=== PATIENT | female | born 1960 | race Caucasian/White ===

== ENCOUNTER 2017-06-05 19:08 | Emergency (ER) | payer OTHER ==
[~2017-06-05] VITALS: Ht 163.8 cm; Wt 80.9 kg
[~2017-06-05 19:08] MED LIST: ASPI81TA11 PO; B-12500T3 PO; CARD120C4 PO; D31000CA PO; LEVO.025 PO
[2017-06-05 19:09] VITALS: BP 151/85; PULSE 138; RESP 20; TEMP 100; O2SAT 97
--- NOTE | 2017-06-05 20:08 | RADRPT ---
EXAM DATE/TIME: 06/05/2017 19:44 [place] COMPARISON: No previous studies available for comparison. INDICATIONS : Fever and low blood pressure. MEDICAL HISTORY : None. SURGICAL HISTORY : None. ENCOUNTER: Initial ACUITY: 2 days PAIN SCORE: 0/10 LOCATION: Bilateral chest FINDINGS: PA and lateral views of the chest demonstrate the lungs to be symmetrically aerated without evidence of mass, infiltrate or effusion. The cardiomediastinal contours are unremarkable. Osseous structure s are intact, except mild scoliosis. CONCLUSION: 1. No active disease. Mild scoliosis. Mario Pickard MD on June 05, 2017 at 20:04 Board Certified Radiologist. This report was verified electronically.
[2017-06-05] MEDS ORDERED: ACETAMINOPHEN 325 MG TAB PO ONE (20:45)
[2017-06-05] MEDS ORDERED: SODIUM CHLOR 0.9% 1000 ML INJ 1,000 ML IV ONE (20:45)
[2017-06-05] MEDS ORDERED: D-20TAB3 PO (20:58)
[2017-06-05] MEDS ORDERED: BACL10TA PO (20:58)
[2017-06-05] MEDS ORDERED: CARD120T4 PO (20:58)
[2017-06-05 21:47] LABS: AUTOMATED NEUTROPHIL # 6.4 TH/MM3 (1.8-7.7); BASOPHIL % 0.3 % (0.0-2.0); EOSINOPHIL % 0.4 % (0.0-4.0); HEMATOCRIT 42.1 % (35.0-46.0); HEMOGLOBIN 14.2 GM/DL (11.6-15.3); LYMPHOCYTE # 0.9 TH/MM3 (1.0-4.8); MEAN CELL VOLUME 85.2 FL (80.0-100.0); MEAN CORPUSCULAR HEMOGLOBIN 28.7 PG (27.0-34.0); MEAN CORPUSCULAR HGB CONC 33.7 % (32.0-36.0); MEAN PLATELET VOLUME 8.4 FL (7.0-11.0); MONO % 3.5 % (0.0-8.0); MONOCYTE # 0.3 TH/MM3 (0-0.9); NEUT % 83.8 % (16.0-70.0); PLATELET COUNT 250 TH/MM3 (150-450); RED BLOOD COUNT 4.94 MIL/MM3 (4.00-5.30); RED CELL DISTRIBUTION WIDTH 14.2 % (11.6-17.2); WHITE BLOOD COUNT 7.6 TH/MM3 (4.0-11.0)
[2017-06-05 21:49] LABS: AMORPHOUS SEDIMENT, URINE RARE; BILIRUBIN, URINE NEG (NEG); BLOOD, URINE SMALL (NEG); GLUCOSE,URINE NEG (NEG); KETONE, URINE NEG (NEG); MUCUS URINE FEW /lpf (OCC); NITRITE,URINE NEG (NEG); PH, URINE 5.5 (5.0-8.5); SQUAMOUS EPITHELIAL CELL URINE 7 /hpf (0-5); URINE COLOR YELLOW (YELLW/STRAW); URINE LEUKOCYTE ESTERASE LARGE (NEG)
--- NOTE | 2017-06-05 22:10 | EKG ---
Date Performed: 06/05/2017 Time Performed: 20:55:37 PTAGE: 57 years EKG: SINUS TACHYCARDIA POSSIBLE LEFT ATRIAL ENLARGEMENT POSSIBLE LEFT VENTRICULAR HYPERTROPHY ST DEVIATION AND MODERATE T-WAVE ABNORMALITY ABNORMAL ECG PREVIOUS TRACING : 04/14/2014 05.00 Since previous tracing, no significant change noted DOCTOR: Lorena Devine Interpretating Date/Time 06/05/2017 22:09:09
[2017-06-05 22:13] LABS: ALKALINE PHOSPHATASE 79 U/L (45-117); TOTAL BILIRUBIN ADULT 0.3 MG/DL (0.2-1.0); TOTAL PROTEIN 7.5 GM/DL (6.4-8.2); TROPONIN I LESS THAN 0.02 NG/ML (0.02-0.05)
[2017-06-05 22:20] LABS: ALBUMIN 3.5 GM/DL (3.4-5.0); ALT (GPT) 21 U/L (10-53); AST (GOT) 22 U/L (15-37); BICARBONATE 23.9 MEQ/L (21.0-32.0); BLOOD UREA NITROGEN 12 MG/DL (7-18); CALCIUM 8.2 MG/DL (8.5-10.1); CHLORIDE 105 MEQ/L (98-107); CREATININE 0.61 MG/DL (0.50-1.00); GLOMERULAR FILTRATION RATE 101 ML/MIN (>89); GLUCOSE,RANDOM 98 MG/DL (74-106); MAGNESIUM 2.1 MG/DL (1.5-2.5); SODIUM (NA) 136 MEQ/L (136-145)
[2017-06-05] MEDS ORDERED: NITROFURANTOIN MONOHYD MACROCR 100 MG CAP PO ONE (22:45)
[2017-06-05] MEDS ORDERED: MACR100C2 PO (22:46)
--- NOTE | 2017-06-05 22:46 | PD ---
HPI Chief Complaint: Cold / Flu Symptoms Time Seen by Provider: 20:24 Travel History International Travel<30 days: No Contact w/Intl Traveler<30days: No Traveled to known affect area: No History of Present Illness HPI Patient is a 57-year-old female presenting to the emergency department for evaluation of cough, headache, dizziness, nasal congestion and sore throat. Patient states this started 2 days ago, she states her blood pressure was low at home today and she felt as if she was going to pass out. She did not pass out. Patient reports a max temp 100.6, she took acetaminophen once today. Patient denies abdominal pain, vomiting, chest pain, shortness of breath. She reports medical history significant for hypertension, cardiac, muscle spasms, fibromyalgia and hypothyroidism. Symptom onset was gradual, symptoms are exacerbated with movement, patient's symptoms are not alleviated by anything. PFSH Past Medical History Hx Anticoagulant Therapy: Yes (baby ASA) Arthritis: Yes Autoimmune Disease: Yes Blood Disorders: No Anxiety: Yes (because of pain) Depression: No Heart Rhythm Problems: Yes Cancer: Yes (VULVAR) Cardiovascular Problems: Yes High Cholesterol: Yes Chemotherapy: No Congestive Heart Failure: Yes Diabetes: No Diminished Hearing: No Endocrine: No GERD: Yes Glaucoma: No Genitourinary: No Hepatitis: No Hiatal Hernia: Yes Hypertension: Yes Immune Disorder: Yes (fibromyalgia) Medical other: Yes (reflux back and neck problems scoliosis) Musculoskeletal: Yes (scoliosis) Neurologic: Yes Psychiatric: Yes Reproductive: No Respiratory: Yes (alergic rhinitis ) Radiation Therapy: No Thyroid Disease: No ?: Not Menopausal: Yes : 1 Para: 1 Ovarian Cysts: Yes Tubal Ligation: Yes Past Surgical History Gynecologic Surgery: Yes (LEFT BREAST BIOPSY, UTERINE ABLATION) Oral Surgery: Yes (WISDOM TEETH) Pacemaker: No Tonsillectomy: Yes Other Surgery: Yes (COLONOSCOPY WITH POLYPS REMOVED) Social History Alcohol Use: No Tobacco Use: Yes (QUIT 2004: November) Substance Use: No Allergies-Medications (Allergen,Severity, Reaction): Coded Allergies: iodine (Unverified Allergy, Severe, HIVES; SHORTNESS OF BREATH, 12/26/16) metoprolol (Unverified Allergy, Severe, TENDONITIS , 12/26/16) potassium iodide (Unverified Allergy, Severe, HIVES; SHORTNESS OF BREATH, 12/26/16) povidone-iodine (Unverified Allergy, Severe, HIVES; SHORTNESS OF BREATH, ) sodium iodide (Unverified Allergy, Severe, HIVES; SHORTNESS OF BREATH, ) sodium iodide (Unverified Allergy, Severe, HIVES; SHORTNESS OF BREATH, ) Sulfa (Sulfonamide Antibiotics) (Unverified Allergy, Intermediate, BEHAVIORAL CHANGES, 12/26/16) iohexol (Unverified Allergy, Unknown, HX BEING PRE-MEDICATED BEFORE AT [facility], 12/26/16) acetaminophen (Unverified Adverse Reaction, Intermediate, 12/26/16) "I FEEL LIKE MY NERVES ARE BEING STUNG BY BEES" milk (Unverified Adverse Reaction, Intermediate, GI DISTRESS, 12/26/16) Uncoded Allergies: DECONGESTANTS (Allergy, Severe, INCREASED HEART RATE, 09/10/09) ENVIROMENTAL/MOLDS (Allergy, Intermediate, NASAL CONGESTION, 09/10/09) NO FOOD WITH SEEDS (Adverse Reaction, Intermediate, PT HAS DIVERTICULITIS, 09/27/06) SOMES ANTIHISTAMINES (Adverse Reaction, Intermediate, INCREASES HEART RATE , 09/27/06) Reported Meds & Prescriptions Reported Meds & Active Scripts Active Macrobid (Nitrofurantoin Monoh/Nitrofur Macro) 100 Mg Cap 100 Mg PO BID Reported Cardizem (Diltiazem HCl) 120 Mg Tab 120 Mg PO DAILY Baclofen 10 Mg Tab 10 Mg PO BID D-2000 Maximum Strength (Cholecalciferol) 2,000 Unit Tab 800 Units PO DAILY Review of Systems Except as stated in HPI: all other systems reviewed are Neg General / Constitutional: Positive: Fever, Chills HENT: Positive: Headaches, Lightheadedness, Sore Throat, Congestion Cardiovascular: No: Chest Pain or Discomfort Respiratory: Positive: Cough, No: Shortness of Breath Gastrointestinal: No: Nausea, Vomiting, Abdominal Pain Genitourinary: No: Dysuria Musculoskeletal: No: Myalgias Physical Exam Narrative GENERAL: Well-developed, well-nourished, well-appearing female. Resting in no acute distress. SKIN: Warm and dry. HEAD: Atraumatic. Normocephalic. EYES: Pupils equal and round. No scleral icterus. No injection or drainage. ENT: No nasal bleeding or discharge. Mucous membranes pink and moist. NECK: Trachea midline. No JVD. CARDIOVASCULAR: Tachycardic RESPIRATORY: No accessory muscle use. Clear to auscultation. Breath sounds equal bilaterally. GASTROINTESTINAL: Abdomen soft, non-tender, nondistended. Hepatic and splenic margins not palpable. MUSCULOSKELETAL: Extremities without clubbing, cyanosis, or edema. No obvious deformities. NEUROLOGICAL: Awake and alert. No obvious cranial nerve deficits. Motor grossly within normal limits. Five out of 5 muscle strength in the arms and legs. Normal speech. PSYCHIATRIC: Appropriate mood and affect; insight and judgment normal. Data Data Last Documented VS Vital Signs Date Time Temp Pulse Resp B/P (MAP) Pulse Ox O2 Delivery O2 Flow Rate FiO2 06/05/17 23:01 96 18 155/76 (102) 96 Room Air 06/05/17 19:09 100.0 Orders Orders Electrocardiogram (06/05/17 19:31) Complete Blood Count With Diff (06/05/17 19:31) Comprehensive Metabolic Panel (06/05/17 19:31) Magnesium (Mg) (06/05/17 19:31) Ckmb (Isoenzyme) Profile (06/05/17 19:31) Troponin I (06/05/17 19:31) Urinalysis - C+S If Indicated (06/05/17 19:31) Chest, Pa & Lat (06/05/17 19:31) Influenzae A/B Antigen (06/05/17 19:31) Acetaminophen (Tylenol) (06/05/17 20:45) Sodium Chlor 0.9% 1000 Ml Inj (Ns 1000 M (06/05/17 20:45) Urine Culture (06/05/17 21:15) CKMB (06/05/17 21:10) CKMB% (06/05/17 21:10) Nitrofurantoin Monohyd Macrocr (Macrobid (06/05/17 22:45) Ed Discharge Order (06/05/17 22:44) Labs Laboratory Tests Test 06/05/17 21:10 06/05/17 21:15 White Blood Count 7.6 TH/MM3 Red Blood Count 4.94 MIL/MM3 Hemoglobin 14.2 GM/DL Hematocrit 42.1 % Mean Corpuscular Volume 85.2 FL Mean Corpuscular Hemoglobin 28.7 PG Mean Corpuscular Hemoglobin Concent 33.7 % Red Cell Distribution Width 14.2 % Platelet Count 250 TH/MM3 Mean Platelet Volume 8.4 FL Neutrophils (%) (Auto) 83.8 % Lymphocytes (%) (Auto) 12.0 % Monocytes (%) (Auto) 3.5 % Eosinophils (%) (Auto) 0.4 % Basophils (%) (Auto) 0.3 % Neutrophils # (Auto) 6.4 TH/MM3 Lymphocytes # (Auto) 0.9 TH/MM3 Monocytes # (Auto) 0.3 TH/MM3 Eosinophils # (Auto) 0.0 TH/MM3 Basophils # (Auto) 0.0 TH/MM3 CBC Comment DIFF FINAL Differential Comment Blood Urea Nitrogen 12 MG/DL Creatinine 0.61 MG/DL Random Glucose 98 MG/DL Total Protein 7.5 GM/DL Albumin 3.5 GM/DL Calcium Level 8.2 MG/DL Magnesium Level 2.1 MG/DL Alkaline Phosphatase 79 U/L Aspartate Amino Transf (AST/SGOT) 22 U/L Alanine Aminotransferase (ALT/SGPT) 21 U/L Total Bilirubin 0.3 MG/DL Sodium Level 136 MEQ/L Potassium Level 3.7 MEQ/L Chloride Level 105 MEQ/L Carbon Dioxide Level 23.9 MEQ/L Anion Gap 7 MEQ/L Estimat Glomerular Filtration Rate 101 ML/MIN Total Creatine Kinase 163 U/L Creatine Kinase MB 2.3 NG/ML Troponin I LESS THAN 0.02 NG/ML Urine Color YELLOW Urine Turbidity HAZY Urine pH 5.5 Urine Specific [place] 1.009 Urine Protein NEG mg/dL Urine Glucose (UA) NEG mg/dL Urine Ketones NEG mg/dL Urine Occult Blood SMALL Urine Nitrite NEG Urine Bilirubin NEG Urine Urobilinogen LESS THAN 2.0 MG/DL Urine Leukocyte Esterase LARGE Urine RBC 16 /hpf Urine WBC 21 /hpf Urine Squamous Epithelial Cells 7 /hpf Urine Amorphous Sediment RARE Urine Mucus FEW /lpf Microscopic Urinalysis Comment CULTURE INDICATED MDM Medical Decision Making Medical Screen Exam Complete: Yes Emergency Medical Condition: Yes Interpretation(s) Last Impressions Chest X-Ray 06/05/171930 Signed Impressions: Service Date/Time: Monday, June 05, 2017 19:44 - CONCLUSION: 1. No active disease. Mild scoliosis. Mario Pickard MD Laboratory Tests Test 06/05/17 21:10 06/05/17 21:15 White Blood Count 7.6 TH/MM3 Red Blood Count 4.94 MIL/MM3 Hemoglobin 14.2 GM/DL Hematocrit 42.1 % Mean Corpuscular Volume 85.2 FL Mean Corpuscular Hemoglobin 28.7 PG Mean Corpuscular Hemoglobin Concent 33.7 % Red Cell Distribution Width 14.2 % Platelet Count 250 TH/MM3 Mean Platelet Volume 8.4 FL Neutrophils (%) (Auto) 83.8 % Lymphocytes (%) (Auto) 12.0 % Monocytes (%) (Auto) 3.5 % Eosinophils (%) (Auto) 0.4 % Basophils (%) (Auto) 0.3 % Neutrophils # (Auto) 6.4 TH/MM3 Lymphocytes # (Auto) 0.9 TH/MM3 Monocytes # (Auto) 0.3 TH/MM3 Eosinophils # (Auto) 0.0 TH/MM3 Basophils # (Auto) 0.0 TH/MM3 CBC Comment DIFF FINAL Differential Comment Blood Urea Nitrogen 12 MG/DL Creatinine 0.61 MG/DL Random Glucose 98 MG/DL Total Protein 7.5 GM/DL Albumin 3.5 GM/DL Calcium Level 8.2 MG/DL Magnesium Level 2.1 MG/DL Alkaline Phosphatase 79 U/L Aspartate Amino Transf (AST/SGOT) 22 U/L Alanine Aminotransferase (ALT/SGPT) 21 U/L Total Bilirubin 0.3 MG/DL Sodium Level 136 MEQ/L Potassium Level 3.7 MEQ/L Chloride Level 105 MEQ/L Carbon Dioxide Level 23.9 MEQ/L Anion Gap 7 MEQ/L Estimat Glomerular Filtration Rate 101 ML/MIN Total Creatine Kinase 163 U/L Creatine Kinase MB 2.3 NG/ML Troponin I LESS THAN 0.02 NG/ML Urine Color YELLOW Urine Turbidity HAZY Urine pH 5.5 Urine Specific [place] 1.009 Urine Protein NEG mg/dL Urine Glucose (UA) NEG mg/dL Urine Ketones NEG mg/dL Urine Occult Blood SMALL Urine Nitrite NEG Urine Bilirubin NEG Urine Urobilinogen LESS THAN 2.0 MG/DL Urine Leukocyte Esterase LARGE Urine RBC 16 /hpf Urine WBC 21 /hpf Urine Squamous Epithelial Cells 7 /hpf Urine Amorphous Sediment RARE Urine Mucus FEW /lpf Microscopic Urinalysis Comment CULTURE INDICATED Vital Signs Date Time Temp Pulse Resp B/P (MAP) Pulse Ox O2 Delivery O2 Flow Rate FiO2 06/05/17 23:01 96 18 155/76 (102) 96 Room Air 06/05/17 19:09 100.0 138 20 151/85 (107) 97 Room Air Differential Diagnosis Influenza versus viral syndrome versus bronchitis versus pneumonia versus other Narrative Course Patient is 57-year-old well-appearing female presenting to emergency department for evaluation of cold of flulike symptoms. Additionally she reported that her blood pressure was low at home. Her vital signs are stable she is tachycardic but reports a history of the same which is why she is on Cardizem. Labs and imaging ordered and pending. She was given acetaminophen and 1 L of IV fluids for her low-grade fever. Initial EKG shows sinus tachycardia with a rate of 113. Influenza is negative CBC is unremarkable Chemistry with no acute findings, cardiac enzymes are negative 1 set. Patient did not have any complaint of chest pain. Urinalysis is consistent with a urinary tract infection. Patient will be started on Macrobid, first dose was given now. Chest x-ray shows no acute disease. Patient's vital signs reassessed, her heart rate had trended down it is currently 96. Patient will be discharged home, she is encouraged to follow-up with her primary doctor. She was advised on all findings. He is encouraged to return to emergency department for any new or worsening symptoms. Patient verbalized understanding of instructions. Patient is stable for discharge. Diagnosis Primary Impression: UTI (urinary tract infection) Qualified Codes: N39.0 - Urinary tract infection, site not specified; R31.9 - Hematuria, unspecified Referrals: Primary Care Physician 3 days Patient Instructions: General Instructions, Urinary Tract Infection in Women ( [place]) Additional Instructions: Increased fluid intake Follow-up with her primary doctor Complete full course of antibiotics as prescribed Return to emergency department for any new or worsening symptoms Med/Other Pt SpecificInfo: Prescription(s) given Scripts Nitrofurantoin Monohydrate Macrocrystals (Macrobid) 100 Mg Cap 100 MG PO BID for Infection, #14 CAP 0 Refills Prov: CorbyJacqui 06/05/17 Disposition: 01 DISCHARGE HOME Condition: Stable Jacqui Tavarez Jun 05, 2017 22:46
[2017-06-05 23:01] VITALS: BP 155/76; PULSE 96; RESP 18; O2SAT 96
== END 2017-06-05 23:21 | disposition home or self-care (01) ==
LOC: NEPD 19:08
DX: N39.0 Urinary tract infection, site not specified (principal); R31.9 Hematuria, unspecified; R05 Cough; R09.81 Nasal congestion; R94.31 Abnormal electrocardiogram [ECG] [EKG]; I11.0 Hypertensive heart disease with heart failure; I50.9 Heart failure, unspecified; E03.9 Hypothyroidism, unspecified; Z87.891 Personal history of nicotine dependence
CPT/HCPCS: 71046; 80053; 81001; 82550; 82552; 83735; 84484; 85025; 87086; 87804; 93005; 96360; 96361; 99285; J7030